=== PATIENT | male | born 1995 | race Caucasian/White ===

== ENCOUNTER 2016-08-05 11:39 | Observation (INO) | payer OTHER ==
--- NOTE | 2016-08-05 11:54 | EDPHY ---
HPI/HX/ROS/PE/MDM Narrative: CHIEF COMPLAINT: Left knee injury HPI: The patient is a 21 y/o male arriving via EMS as a Limited Trauma Alert complaining of pain to his left knee following a ski injury. He says he was traveling at low speeds when he fell, twisted his knee, heard a pop, and the binding came off. He had immediate severe pain and moderate swelling. He was splinted and extricated by skid strapper, who administered 100mcg Fentanyl with no improvement in his pain. The patient denies head, neck, back, or other extremity pain, loss of consciousness, weakness, or paresthesia. EMS reports he had intact CMS distal to the injury throughout transport, but did have difficulty controlling his pain. EMS administered additional 100mcg IV Fentanyl , IV Valium, and IV Morphine with some reduction in pain. He denies pertinent medical history. REVIEW OF SYSTEMS: Aside from elements discussed in the HPI, a comprehensive 10-point review of systems was reviewed and is negative. PMH: Denies SOCIAL HISTORY: Lives in [place]. PHYSICAL EXAM: General:Patient is alert, in mild distress. ENT:Eyes are normal to inspection. ENT inspection normal. Neck: Normal inspection. Full range of motion. Respiratory:No respiratory distress. Breath sounds normal bilaterally. Cardiovascular: Regular rate and rhythm. Strong peripheral pulses. Normal cap refill. Abdomen:The abdomen is nontender to palpation. There are no peritoneal signs. There are normal bowel sounds. Back: Normal to inspection. No tenderness to palpation. Skin: Normal color. No rash. Warm and dry. Extremities: Left leg: cap refill normal, 2+ dorsalis pedis pulse, deformity to knee and upper yi with swelling and severe tenderness, skin intact, ROM test deferred. Other extremities are normal in appearance with full range of motion. Neuro: Oriented x3. Normal motor function. Normal sensory function. ED Course: Study: Left knee x-ray series Indication: Pain, trauma, deformity Results: Knee x-ray was obtained. The results of the study are Comminuted displaced lateral tibial plateau fracture. The study was read by the radiologist, Dr. Solis. I viewed the images myself on the PACS system. No sign of knee dislocation. I have downgraded the patient as this was not an appropriate trauma activation. 1202: Consulted with Dr. Ortega, orthopedic surgeon. He will review films and assess patient. 1205: 100mcg IV Fentanyl administered for pain. CBC and CHEM labs ordered. Limited Trama downgraded. 1215: Consulted with Dr. Ortega again. He requests knee CT and immobilizer. Study: CT of the left knee Indication: pain, trauma, fracture, preop Results: CT scan of the knee was obtained. The results of the study are Comminuted displaced lateral tibial plateau fracture. Marked comminution of the tibial spines, likely involving the anterior cruciate ligament attachment. The dominant fracture fragment is displaced laterally. The study was read by the radiologist, Dr. Solis. I viewed the images myself on the PACS system. 1437: Consulted with Dr. Ortega again. He will review CT then determine if patient will be discharged home today. 1440: I discussed options for admission vs. home pain control with the patient. He has required multiple doses of Dilaudid while here to manage is pain for total of 1.5mg Dilaudid and 100mcg Fentanyl in addition to pain medication he received in the field. He is unsure if he will be able to manage his pain at home and wants to discuss with his family before deciding. 1455: Patient feels more comfortable being admitted to the hospital to manage his pain. - Data Points Laboratory Results: Laboratory Results 08/05/16 12:14 08/05/16 12:14 08/05/16 12:14 WBC 14.66 H 10^3/uL (3.80-9.50) RBC 4.89 10^6/uL (4.40-6.38) Hgb 14.5 g/dL (13.7-17.5) Hct 41.0 % (40.0-51.0) MCV 83.8 fL (81.5-99.8) MCH 29.7 pg (27.9-34.1) MCHC 35.4 g/dL (32.4-36.7) RDW 13.0 % (11.5-15.2) Plt Count 244 10^3/uL (150-400) MPV 9.5 fL (8.7-11.7) Neut % (Auto) 85.7 H % (39.3-74.2) Lymph % (Auto) 8.3 L % (15.0-45.0) Miner % (Auto) 5.0 % (4.5-13.0) Eos % (Auto) 0.2 L % (0.6-7.6) Baso % (Auto) 0.3 % (0.3-1.7) Nucleat RBC Rel Count 0.0 % (0.0-0.2) Absolute Neuts (auto) 12.56 H 10^3/uL (1.70-6.50) Absolute Lymphs (auto) 1.21 10^3/uL (1.00-3.00) Absolute Monos (auto) 0.73 10^3/uL (0.30-0.80) Absolute Eos (auto) 0.03 10^3/uL (0.03-0.40) Absolute Basos (auto) 0.05 10^3/uL (0.02-0.10) Absolute Nucleated RBC 0.00 10^3/uL (0-0.01) Immature Gran % 0.5 % (0.0-1.1) Immature Gran # 0.08 10^3/uL (0.00-0.10) Sodium 139 mEq/L (134-144) Potassium 4.2 mEq/L (3.5-5.2) Chloride 106 mEq/L (97-110) Carbon Dioxide 22 mEq/l (22-31) Anion Gap 11 mEq/L (8-16) BUN 12 mg/dL (7-23) Creatinine 0.7 mg/dL (0.7-1.3) Estimated GFR > 60 Glucose 109 H mg/dL (70-100) Calcium 9.2 mg/dL (8.5-10.4) Medications Given: Discontinued Medications Fentanyl (Sublimaze) 100 mcg IVP EDNOW ONE Stop: 08/05/16 12:06 Last Admin: 08/05/16 12:05 Dose: 100 mcg Hydromorphone HCl (Dilaudid) 0.5 mg IVP EDNOW ONE Stop: 08/05/16 12:22 Last Admin: 08/05/16 13:05 Dose: 0.5 mg General Initial Vital Signs: Initial Vital Signs Temperature (C) 36.8 C 08/05/16 11:49 Heart Rate 92 08/05/16 11:49 Respiratory Rate 16 08/05/16 11:49 Blood Pressure 158/106 H 08/05/16 11:49 O2 Sat (%) 97 08/05/16 11:49 O2 Delivery Mode Room Air Allergies/Adverse Reactions: clindamycin Allergy (Verified 08/05/16 11:47) Home Medications: Medication Instructions Recorded Herbals/Supplements -Info Only 1 ea PO DAILY 08/05/16 Loratadine [Claritin 10 mg] 10 mg PO DAILY 08/05/16 Triamcinolone 0.1% [Triamcinolone 1 nona TP DAILY PRN 08/05/16 0.1% Cream (*)] Departure - Departure Disposition: [facility] Inpatient Acute Clinical Impression: Tibial plateau fracture, left, displaced comminuted, Intractable pain Condition: Fair Instructions: Leg Fracture (ED) Additional Instructions: 1. Keep leg in immobilizer until follow up. Do not bear weight. Elevate when possible. Apply ice to sore areas. 2. Take 600mg ibuprofen every 6-8 for pain and inflammation. 3. Use pain medication as prescribed when needed for pain. 4. Follow up with Dr. Ortega's office tomorrow to schedule follow up. 5. Return to the ED for severe pain, dramatic increase in swelling, weakness or numbness in your foot, or other worsening of condition. Referrals: Patient,NotPresent [Unknown] - As per Instructions Dorian Ortega MD [Medical Doctor] - As per Instructions Report Scribed for: Nito Tang Report Scribed by: Jennifer Armstrong Date of Report: 08/05/16 Time of Report: 11:55 Physician Review and Approval Statement: Portions of this note were transcribed by an ED scribe. I personally performed the history, physical exam, and medical decision making; and confirm the accuracy of the information in the transcribed note.
[2016-08-05] MEDS ORDERED: fentaNYL 100 MCG/2 ML INJ ONE (12:00)
[2016-08-05] MEDS ORDERED: fentaNYL 100 MCG/2 ML INJ IVP ONE (12:05)
--- NOTE | 2016-08-05 12:06 | DX ---
Knee 4 or More Views Left HISTORY: Skiing injury. FINDINGS: Comminuted displaced fracture of the lateral tibial plateau is present. The dominant fractu re fragment is displaced laterally and inferiorly. Fracture fragments extend into the tibial spines. Associated lipohemarthrosis. Distal femur and patella appear intact. IMPRESSION: Comminuted displaced lateral tibial plateau fracture.
[2016-08-05] MEDS ORDERED: HYDROmorphONE/DILAUDID 1 MG/ML SYR IVP ONE ×2 (12:21→14:45)
[2016-08-05 12:24] LABS: % IMMATURE GRANULYOCYTES 0.5 % (0.0-1.1); ABSOLUTE IMMATURE GRANULOCYTES 0.08 10^3/uL (0.00-0.10); ADD DIFF? NO; ADD MORPH? NO; ADD SCAN? NO; ATYPICAL LYMPHOCYTE FLAG 0 (0-99); FRAGMENT RBC FLAG 0 (0-99); HEMOGLOBIN 14.5 g/dL (13.7-17.5); LEFT SHIFT FLG 0 (0-99); LIPEMIA HEMOLYSIS FLAG 90 (0-99); MEAN CELL HEMOGLOBIN 29.7 pg (27.9-34.1); MEAN CELL HEMOGLOBIN CONCENTR. 35.4 g/dL (32.4-36.7); MEAN CELL VOLUME 83.8 fL (81.5-99.8); MEAN PLATELET VOLUME 9.5 fL (8.7-11.7); PLATELET CLUMPS FLAG 10 (0-99); PLATELET COUNT 244 10^3/uL (150-400); RED BLOOD CELL COUNT 4.89 10^6/uL (4.40-6.38)
[2016-08-05 12:39] LABS: ANION GAP 11 mEq/L (8-16); CALCIUM 9.2 mg/dL (8.5-10.4); CARBON DIOXIDE 22 mEq/l (22-31); CHLORIDE 106 mEq/L (97-110); CREATININE 0.7 mg/dL (0.7-1.3); GLOMERULAR FILTRATION RATE > 60; GLUCOSE 109 mg/dL (70-100); POTASSIUM 4.2 mEq/L (3.5-5.2); SODIUM 139 mEq/L (134-144)
--- NOTE | 2016-08-05 13:39 | CT ---
CT of the left knee, without contrast. HISTORY: Skiing related injury. TECHNIQUE: Biometric axial CT images of the left knee are obtained and are reformatted in sagittal an d coronal planes. Dose reduction techniques were utilized. FINDINGS: An extremely comminuted displaced fracture of the tibial plateau is present. There is a lar ge dominant fracture fragment displaced laterally. Extreme comminution of the tibial spines is presen t. The anterior cruciate ligament likely inserts on one of these comminuted fragments. The posterior cruciate ligament appears intact on the sagittal reconstructions. Fracture extends across midline to involve the lateral aspect of the medial tibial plateau. IMPRESSION: 1. Comminuted displaced lateral tibial plateau fracture. Marked comminution of the tibial spines, lik jovita involving the anterior cruciate ligament attachment. The dominant fracture fragment is displaced laterally.
[2016-08-05] MEDS ORDERED: HYDROmorphONE/DILAUDID 1 MG/ML SYR IVP PRN (13:58)
[2016-08-05] MEDS ORDERED: HYDROmorphONE/DILAUDID 1 MG/ML SYR ONE (13:58)
[2016-08-05] MEDS ORDERED: LORazepam 2 MG/ML INJ IVP PRN (16:09)
[2016-08-05] MEDS ORDERED: ONDANSETRON 4 MG/2 ML VIAL IVP PRN (16:09)
[2016-08-05 16:27] LABS: INR 1.04 (0.83-1.16); PROTIME(PATIENT) 13.5 SEC (12.0-15.0)
[2016-08-05] MEDS ORDERED: DIAZEPAM 10 MG/2 ML SYR ONE (16:41)
--- NOTE | 2016-08-05 17:02 | GHP ---
[f rep st] PREOP HISTORY AND PHYSICAL DATE OF ADMISSION: 08/05/2016 CHIEF COMPLAINT: Left knee injury. HISTORY OF PRESENT ILLNESS: A 21-year-old RHD male CHRISTINE who complains of left knee injury while skiing at [employer]. 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 No binding release. He notes 2 pops as he felt his knee give way and he fell to the ground in severe pain. He was helmeted. No loss of consciousness or other injuries. He was unable to bear weight and required skilled nursing facilities professional [place] He denies any numbness or tingling at this time. His pain is well controlled in the range of 2 out of 10 currently after IV hydromorphone provided by ER; max pain was 8-9/10 right after the injury. He denies any other deficits or concerns at this time. He is accompanied by his mother and father. PAST MEDICAL HISTORY: Seasonal depression. PAST SURGICAL HISTORY: Tonsillectomy and adenoidectomy in November of 2015. Right foot skin lesion resection with Dermatology in December of 2015. Biopsy was negative for any cancer. ALLERGIES: Clindamycin causes lower extremity swelling, hives, and rash. MEDICATIONS: Escitalopram, trazodone, and clonazepam as needed for his depression on a seasonal basis, not taking any currently. SOCIAL HISTORY: He does not smoke or use any tobacco, recreational or illicit drugs. Approximately 6 alcoholic drinks per week. He is a senior at [employer]. 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 He otherwise is very active with biking, hiking, skiing, and all general outdoor activities. FAMILY HISTORY: Grandmother breast cancer. Grandfather stroke. Mother depression and hypothyroidism. REVIEW OF SYSTEMS: Ten-point review is negative for any other complaints, concerns, or history. PHYSICAL EXAM: VITAL SIGNS: Afebrile. Blood pressure 153/100, heart rate 96, respiratory rate 18, satting at 99% on 2 L. GENERAL: NAD, cooperative and pleasant. HEENT: NC/AT. EOMI, PERRLA. Ears and nares parent without discharge. Oropharynx clear. NECK: NTTP, FROM, supple. Negative Lhermitte's and Spurling's. No LAD. CARDIAC: Regular rate and rhythm. No murmurs, gallops, or rubs. PULMONARY: Clear to auscultation bilaterally. No wheezes, rhonchi, or rales. MUSCULOSKELETAL: Left knee is notable for significant medial hematoma, as well as edema. There is ecchymosis. Skin is intact throughout. No erythema or calor. 2+ effusion c/w acute hemarthrosis. There is TTP that is mild to moderate diffusely in the area of the knee. LLE compartments throughout are soft and compressible. There is no pain with active DF and PF of the ankle, as well as full flexion and extension of all digits. No pain with passive stretch. He is unable to perform SLR due to severe pain with attempted maneuver; no palpable patella dhara or extensor mechanism defects, however difficult to assess due to effusion and edema. Light touch sensation is intact distally throughout sural, saphenous, superficial peroneal, deep peroneal, and tibial nerve distributions. Motor intact throughout without any deficits. He is warm and well perfused with brisk capillary refill. 2+ palpable dorsalis pedis and posterior tibial pulses. Stability exam and ROM is deferred due to acute injury. SKIN: Please see dictation above. Skin is intact. There is significant edema directly about the knee, as well as ecchymosis. No erythema or calor. Skin is intact throughout. No other rashes or lesions noted. No tattoos. NEUROLOGIC: Nonfocal. No deficits noted. C5 to T1 and L2 through S1 grossly intact. DTRs are grade 1+ bilateral upper extremities with symmetry. DTRs in the lower extremities are deferred due to injury. PSYCH: Alert and oriented x3. Appropriate mood and affect. RADIOGRAPHS: Plain films and CT scan are notable for a Schatzker II split depression lateral tibial plateau fracture with extension into the intracondylar region and tibial eminences. There is significant comminution throughout the lateral and intercondylar platea. The articular segments depressed inferiorly by a maximum of approximately 2 cm and approximately 1-1.5 cm of diastasis at the lateral plateau articular surface. Otherwise, tibiofemoral alignment is appropriate throughout without any significant subluxation. IMPRESSION: Left tibial plateau fracture, Schatzker II with severe comminution and displacement. This is a closed injury and without any signs of compartment syndrome at this time. PLAN: The patient's diagnoses and treatment options have been outlined for him and his family today. At this point, given his significant pain requirement, including multiple Dilaudid IV doses during his ER stay, as well as his significant swelling, we will admit the patient for observation and compartment checks, neurovascular checks, analgesia and close observation. NPO now as precautionary measure in case he may need emergent surgery such as fasciotomy. No chemoprophylaxis at this time, but will likely begin Xarelto 10mg daily tomorrow. He will work with PT/OT this afternoon to evening or tomorrow to assure that he would be safe for discharge home. He understands we would proceed with ORIF surgery and all other associated procedures once his swelling has subsided. Strict NWB LLE. Ice with elevation above his heart. COLEMAN hose and SCDs on the right lower extremity, just SCDs on the left. Education provided to patient and family regarding signs and sx of compartment syndrome. All of his questions have been answered today. They are very happy with the care he has received. We will follow the patient closely overnight as an inpatient and achieve formal rounds again tomorrow before discharging home. /[id number]/MODL MTDD
[2016-08-05 17:16] VITALS: RESP 16
[2016-08-05] MEDS: D5W 1/2 NS 1,000 ML IV SCH ×2 (17:26→23:19)
[2016-08-05] MEDS: HYDROmorphONE/DILAUDID 1 MG/ML SYR IVP PRN ×3 (17:27→21:39)
[2016-08-05] MEDS: OXYCODONE/APAP 5/325 TAB PO PRN ×2 (18:38→23:19)
[2016-08-05] MEDS: DIAZEPAM 10 MG/2 ML SYR IVP PRN ×2 (18:38→23:19)
[2016-08-05 18:57] LABS: APTT 22.9 SEC (23.0-38.0)
[2016-08-06] MEDS: HYDROmorphONE/DILAUDID 1 MG/ML SYR IVP PRN ×4 (00:33→09:26)
[2016-08-06] MEDS: OXYCODONE/APAP 5/325 TAB PO PRN ×2 (04:02→08:04)
[2016-08-06] MEDS ORDERED: LIDO/EPI 1% **Not for Epidural 20 ML MDV IV ONE (08:30)
--- NOTE | 2016-08-06 08:36 | SOAPPROG ---
SOAP Progress Note Assessment/Plan: Assessment: Pain well controlled in 3-4/10 range, no sign of compartment syndrome or NV deficit in this 21M w/ L tibial plateau fx. Plan: NWB, ice/elevation, knee immobilizer LLE. Asp site dressed, reinforce prn. OOB w/ PT/OT today, crutch training, precautions. Continue NPO x meds, ice/sips OK. If exam stable, will provide reg diet ~noon. May be d/c'd home after pain controlled with POs only and clears PT/OT. Will need ORIF once swelling will allow. Will recheck knee in ~1 week to assess for timing of surgery. Start Xarelto prophylaxis today, continue with TEDs/SCDs as ordered. 08/06/16 08:51 08/06/16 10:21 Subjective: Pain well controlled 3-4/10, denies any numbness/tingling or other new c/o's with LLE. Was able to sleep on/off o/n. No nursing concerns. Objective: Vital Signs Temp Pulse Resp BP Pulse Ox 36.7 C 77 16 146/89 H 99 08/06/16 07:43 08/06/16 07:43 08/06/16 07:43 08/06/16 07:43 08/06/16 07:43 08/05/16 08/06/16 08/07/16 05:59 05:59 05:59 Intake Total 2200 Output Total 650 Balance 1550 PT 13.5 SEC (12.0-15.0) 08/05/16 12:25 INR 1.04 (0.83-1.16) 08/05/16 12:25 L knee with tense effusion/hemarthrosis. LLE compartments soft, no sign of compartment syndrome. DNVI BLE's. BLE's neg Kinza's, RLE no calf TTP/edema w/ TEDs/SCDs in place. Procedure: After verbal informed consent, sterile technique used. 1% lido w/ epi used for local anesthesia. L knee aspiration performed with 60cc bloody effusion obtained. Knee joint decompressed after procedure and patient describes knee feeling better with decreased pressure. ICD10 Worksheet Patient Problems: Problems Problem Status Diagnosed Intractable pain Acute Tibial plateau fracture, left Acute
[2016-08-06] MEDS ORDERED: RIVAROXABAN 10 MG TAB PO SCH (09:00)
[2016-08-06 11:19] VITALS: BP 160/92; PULSE 96; TEMP 98.3; O2SAT 91
[2016-08-06] MEDS ORDERED: ALPRAZolam 0.25 MG TAB PO PRN (12:54)
[2016-08-06] MEDS ORDERED: METHOCARBAMOL 750 MG TAB PO PRN (12:56)
[2016-08-06] MEDS ORDERED: HYDROmorphONE/DILAUDID 1 MG/ML SYR IVP PRN (12:59)
[2016-08-06] MEDS ORDERED: OXYCODONE/APAP 5/325 TAB PO PRN (14:08)
[2016-08-06] MEDS ORDERED: oxyCODONE IR 5 MG TAB PO PRN (14:08)
--- NOTE | 2016-08-06 16:56 | PDDCSUM ---
Discharge Summary Discharge Summary: 21y/o M BIBA for L knee injury while skiing. Pt was diagnosed with a L tibial plateau fracture, and admitted for significant pain and observation. Pt was started on Xarelto 10mg daily, and SCDs/TEDs in place on the RLE and SCD on the LLE. Long leg brace on the LLE, in addition to elevation and ice. Pt had difficulty urinating; therefore, a straight catheterization was performed. Pt was evaluated by PT/OT. Pt was weaned off of IV analgesics, and tolerated PO well upon discharge. Aspiration of the L knee hemarthrosis provided relief. No signs of compartment syndrome. Pt understands he will follow-up as an outpatient and undergo ORIF. Hospital course was otherwise uneventful.
== END 2016-08-06 16:44 | disposition home or self-care (01) ==
LOC: EDUNIT# → INTOOBSV 16:25 → F3N 17:11
PROVIDERS: ADMIT Orthopaedic Surgery; ATTEND Orthopaedic Surgery
PROC: 0T9B7ZZ Drainage of Bladder, Via Natural or Artificial Opening (ICD-10-PCS; principal; 2016-08-05)
PROC: 0S9D3ZZ Drainage of Left Knee Joint, Percutaneous Approach (ICD-10-PCS; principal; 2016-08-05)
DX: S82.142A Displaced bicondylar fracture of left tibia, initial encounter for closed fracture (principal); Y93.23 Activity, snow (alpine) (downhill) skiing, snowboarding, sledding, tobogganing and snow tubing; Y92.838 Other recreation area as the place of occurrence of the external cause; V00.321A Fall from snow-skis, initial encounter
CPT/HCPCS: 20610; 51701; 73564; 73700; 96374; 96375; 96376; 97116; 97161; 97530; 99285; G0378; J1170; J3010

== ENCOUNTER 2016-08-15 10:54 | Observation (INO) | payer OTHER ==
[~2016-08-15 10:54] MED LIST: CHLORHEXIDINE GLUC HIBICLENS 118 ML BTL TP ONE; ceFAZolin 2 GM/DEXTROSE 100 ML IV ONE
[2016-08-15] MEDS ORDERED: LIDOCAINE 1% 5 ML SDV ONE (11:31)
[2016-08-15] MEDS ORDERED: CEFAZOLIN 2 GM/DEXTROSE/100 ML BAG IV ONE (11:32)
[2016-08-15] MEDS ORDERED: fentaNYL 250 MCG/5 ML INJ ONE (13:08)
[2016-08-15] MEDS ORDERED: PROPOFOL/EMULSION 500 MG/50 ML BOTTLE IV ONE ×4 (13:09→15:51)
[2016-08-15] MEDS ORDERED: BUPIVACAINE/EPI 0.5% 30 ML SDV ONE (13:36)
[2016-08-15] MEDS ORDERED: POLYMYXIN B SULFATE 500,000 UNIT/10 ML SYR IRR ONE (13:37)
[2016-08-15] MEDS ORDERED: BUPIVACAINE/EPI 0.25% 30 ML SDV ONE (13:37)
[2016-08-15] MEDS ORDERED: morphINE PF 5 MG/10 ML INJ ONE (13:37)
[2016-08-15] MEDS ORDERED: BACITRACIN 50,000 UNITS/10 ML SYR IRR ONE (13:38)
[2016-08-15] MEDS ORDERED: MIDAZOLAM 2 MG/2 ML VIAL ONE (13:46)
[2016-08-15] MEDS ORDERED: REMIFENTANIL HCL 1 MG VIAL ONE ×2 (14:13→15:54)
[2016-08-15] MEDS ORDERED: HYDROmorphONE/DILAUDID 2 MG/ML SYR ONE ×2 (15:08→18:06)
[2016-08-15] MEDS ORDERED: LABETALOL HCL 5 MG/ML 20 ML MDV ONE (15:11)
--- NOTE | 2016-08-15 17:04 | DX ---
Intraoperative fluoroscopy History: Tibial ORIF Comparison: CT August 05 Dose = 5.24 mGy Findings: 4 spot films demonstrate lateral ORIF of the proximal tibia with the tibial plateau appeari ng to be in anatomic alignment. The knee joint is also in anatomic alignment. Impression: Anatomic intraoperative alignment of the tibial plateau and knee joint.
[2016-08-15] MEDS ORDERED: ONDANSETRON 4 MG/2 ML VIAL IVP PRN ×2 (18:33)
[2016-08-15] MEDS ORDERED: diphenhydrAMINE 25 MG CAP PO PRN (18:33)
[2016-08-15] MEDS ORDERED: PROMETHAZINE HCL 25 MG/ML INJ IVP PRN (18:33)
[2016-08-15] MEDS ORDERED: TEMAZEPAM 15 MG CAP PO PRN (18:33)
[2016-08-15] MEDS ORDERED: DIPHENOXYLATE/ATROPINE LOMOTIL 1 TAB PO PRN (18:33)
[2016-08-15] MEDS ORDERED: METOCLOPRAMIDE 10 MG/2 ML VIAL IVP PRN (18:33)
[2016-08-15] MEDS ORDERED: ONDANSETRON DISINTEGRATING 4 MG TAB PO PRN ×2 (18:33)
[2016-08-15] MEDS ORDERED: PROMETHAZINE HCL 25 MG SUPPR PR PRN (18:33)
[2016-08-15] MEDS ORDERED: fentaNYL 100 MCG/2 ML INJ ONE ×2 (18:35→19:07)
[2016-08-15] MEDS ORDERED: NALOXONE HCL 0.4 MG/ML INJ IVP PRN (18:49)
[2016-08-15] MEDS ORDERED: ONDANSETRON 4 MG/2 ML VIAL ONE (18:58)
[2016-08-15] MEDS ORDERED: PROMETHAZINE HCL 25 MG/ML INJ ONE (18:59)
[2016-08-15] MEDS ORDERED: HYDROmorphONE/DILAUDID 1 MG/ML SYR ONE (19:07)
--- NOTE | 2016-08-15 19:11 | POSTOPPROG ---
Post Op Note Date of Operation: 08/15/16 Surgeon: Dorian Ortega Battery Assembler Dry Cell: MARCELO Gordon Anesthesiologist: Nenita Barragan Anesthesia: GET(General Endotracheal) Pre-op Diagnosis: L tibial plateau fracture, closed; MC LMT; MCL & ACL distal avulsions Post-op Diagnosis: same Procedure: ORIF L tibial plateau, open repair of LMT and MCL tear; scope- assisted ACLr Inf/Abcess present in the surg proc area at time of surgery?: No EBL: 50-100 (50cc) Complications: None
--- NOTE | 2016-08-15 20:31 | DX ---
Left Tibia/Fibula (Lower Leg) Clinical Indications: Postoperative follow up; comparison preoperative knee x-ray August 05, 2016. Findings: Postoperative changes of ORIF are seen for treatment of the prominently comminuted and disp laced left tibial plateau fracture. A plate and multiple screws hold the fracture in near anatomic al ignment. An external brace is positioned. No immediate postoperative complication is seen. Impression: Near-anatomic alignment following ORIF.
[2016-08-15] MEDS: oxyCODONE IR 5 MG TAB PO PRN (21:06)
[2016-08-15] MEDS: FAMOTIDINE 20 MG TAB PO SCH (21:07)
[2016-08-15] MEDS: NS 1,000 ML IV SCH (21:07)
[2016-08-15] MEDS ORDERED: ceFAZolin 2 GM/DEXTROSE 100 ML IV SCH (22:00)
[2016-08-15] MEDS: OXYCODONE/APAP 5/325 TAB PO PRN (22:58)
[2016-08-15] MEDS: ACETAMINOPHEN 325 MG TAB PO SCH (23:46)
[2016-08-16] MEDS: CYCLOBENZAPRINE 10 MG TAB PO PRN (00:18)
[2016-08-16] MEDS: oxyCODONE IR 5 MG TAB PO PRN ×6 (00:18→20:56)
[2016-08-16] MEDS: ceFAZolin 2 GM in D5W 100 ML IV SCH ×2 (00:34→08:50)
[2016-08-16] MEDS: HYDROmorphONE/DILAUDID 6 MG/30 ML PCA IV PRN ×2 (01:29→12:14)
--- NOTE | 2016-08-16 04:31 | GOP ---
[f rep st] OPERATIVE REPORT DATE OF OPERATION: 08/15/2016 SURGEON: Dorian Ortega MD TRACK MECHANIC: Humera Alfaro PA-C. ANESTHESIA: General. ANESTHESIOLOGIST: Regan Barragan MD. PREOPERATIVE DIAGNOSIS: 1. Closed left tibial plateau fracture involving both condyles. 2. Left knee lateral meniscus tear and meniscocapsular rupture 3. Left knee distal (MCL) medial collateral ligament avulsion. 4. Left knee anterior cruciate ligament bony avulsion and tibial eminence fracture. POSTOPERATIVE DIAGNOSIS: 1. Closed left tibial plateau fracture involving both condyles. 2. Left knee lateral meniscus tear and meniscocapsular rupture 3. Left knee distal (MCL) medial collateral ligament avulsion. 4. Left knee anterior cruciate ligament bony avulsion and tibial eminence fracture. PROCEDURE PERFORMED: 1. Open reduction, internal fixation of left tibial plateau bicondylar fracture. 2. Open left medial collateral ligament repair. 3. Open left knee lateral meniscus repair and partial meniscectomy. 4. Left knee arthroscopic assisted tibial eminence fracture reduction and distal anterior cruciate ligament (ACL) repair. FINDINGS: Severely displaced and high-energy appearing left lateral tibial plateau fracture, with 2 cm of depression of the articular surface, and widening of the lateral condyle by approximately 1.5 cm. There was extension of the fracture with severe comminution into the intercondylar eminences, with complete disruption of the distal ACL insertion site, as well as further extension out into the medial tibial plateau articular surface. Medial meniscus was intact. There was a complete rupture and partial radial tear of the lateral meniscus at posterior body. The meniscocapsular junction of the lateral meniscus was completely ruptured and the meniscus was displaced laterally with the tibial plateau lateral segment. There were multiple free- floating chondral pieces within the lateral compartment. There was some fracture extension down into the tibial tubercle; however, the majority extensor mechanism was intact. The MCL tear was notable for a complete distal avulsion and displacement superficially over the hamstrings tendons, therefore creating a"Stener lesion" of the knee. Once the internal fixation was completed as well as ligamentous repair, the knee was stable at 0 degrees to varus valgus stress, and had only grade 1 laxity at 30 degrees of flexion. Bone quality was excellent. After reduction of the fracture site, there was significant cartilage loss in the posterior aspect of the lateral tibial plateau articular surface. SPECIMENS: None. ESTIMATED BLOOD LOSS: 50 cc. 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 I was the on-call orthopedic surgeon when he was brought in by ambulance to [facility] Emergency Department. The patient was found to have the above listed tibial plateau fracture. He was immobilized, treated with COLEMAN hose , admitted for significant swelling and compartment checks, as well as pain control, and then discharged home for time to allow the swelling to subside, after compartment syndrome was ruled out. The patient utilized significant p.o. narcotics while he was at home. He remained nonweightbearing. Ice and elevation in his knee immobilizer. He presented to me yesterday for preop evaluation and was found have severe swelling as well as findings concerning for VTE, and therefore was sent to [facility] for stat ultrasound. This was a negative study. The patient was preoperatively evaluated with an outpatient MRI which confirmed the above listed diagnoses, i.e., MCL and ACL complete avulsions as well as severe lateral meniscus tear and meniscal capsular rupture. In addition, the MRI was confirmatory for medial condylar extension of the fracture as well as severe comminution within the intercondylar eminence, and maximum articular step-off medially of 4-5 mm and approximately 2 cm laterally. As a result, the patient was prepared for surgery. The risks, benefits, and alternatives were discussed with him and he provided a signed witnessed informed consent, which was placed in the patient's chart. All of his questions were answered prior to surgery including all of his family's questions. DESCRIPTION OF PROCEDURE: The patient was identified in the preop holding area. His left knee was signed as the operative site. The patient was confirmed to be in right lower extremity COLEMAN hose and SCDs. He was treated with 2 g IV prophylactic cefazolin per protocol. He was taken back to the operating room, placed supine on the OR table. General anesthesia was obtained. A Mcfarland was placed. The patient was then transferred to the flat Cade table. Both upper extremities were placed on well-padded arm boards. Right lower extremity was placed in a well-padded OR table. Left lower extremity was wrapped proximally with cast padding, a nonsterile tourniquet, and then prepped and draped in the usual sterile manner. Large C-arm was utilized and prepped for sterile draping and used during the surgery. C-arm was essential for assurance of reduction and hardware placement. Esmarch exsanguination was utilized to inflate the tourniquet to 250 mmHg. A standard lateral hockey-stick type lazy-S incision was placed along the anterior tibial crest, just superior to Gerdy's tubercle and then posterior along the joint line, and extended up proximally and parallel with the IT band. A full-thickness dermal incision was made with a #10 blade. Careful dissection was taken down to subcutaneous fat. Bovie cautery device was used to coagulate all small bleeders. The IT band was identified proximally and divided in parallel with its fibers. The anterior compartment had significant rupture of the tissues as well as the lateral aspect of the patellar tendon expansion. There was additional IT band tissue rupture distally at the level of Gerdy's tubercle. The fracture hematoma was identified clearly in the distal aspect of the wound at the level of the fracture site, and with abundant hemorrhage and currant jelly-appearing hematoma within the anterior compartment. Using a laminar linux support engineer, the distal aspect of the fracture was carefully opened and significant hematoma was removed with a rongeur, curette, irrigation, and suction. Dissection was then taken proximally and a sub meniscal arthrotomy was performed just inferior to the lateral meniscus, after opening the IT band in a curvilinear manner, across the fibers obliquely, and then parallel to the fibers proximally. Abundant hemarthrosis was suction irrigated. Multiple #2 Ethibond sutures were placed in the lateral aspect of the lateral meniscus, in order to retract the meniscus superiorly, as well as eventually repair the meniscus. Bone tamps were utilized to reduce the depressed articular bone fragments superiorly up toward the appropriate anatomic articular level. Unfortunately, there were multiple sub cm diameter chondral segments that were completely devoid of bone or with only a sliver of bone, that were free-floating within the joint. These were removed from the wound. Once an appropriate reduction was achieved at the level of the articular surface, confirmed with direct visualization as well as orthogonal C- arm x-rays, a reduction was achieved distally with anatomic keying in of the distal extent of the lateral condyle fracture segment. This was then compressed with a large clamp and provisionally fixated with K-wires. Images were taken to assure appropriate reduction throughout. An 8 hole lateral tibial plateau locking plate was identified and selected as the appropriate plate for this patient's injury. This was then placed over the lateral aspect of the tibia and matched with the patient's metaphyseal flare. This was provisionally fixated with additional K-wires. Once an appropriate reduction was confirmed at the level of the articular surface as well as hardware was confirmed in the appropriate position, the plate was lagged down to bone at the level of the distal extent of the fracture, just distal to the fracture with a buttressing bicortical screw. Next, the plate was carefully utilized to compress the tibial plateau fracture across the fracture site, with a terminally threaded nonlocking screw. Three additional Rafter screws were placed across the fracture site in a locking manner, just inferior to the articular surface. Excellent rafter effect was achieved. The plate was then further fixated distally with 2 additional locking screws. Then 2 additional cancellous locking screws more proximally over the metaphyseal segment. A very nice reduction was achieved at the proximal tibial plateau on all views. Once the ORIF portion of the case was completed, the ACL distal avulsion was addressed. Working through the sub meniscal arthrotomy as well as using the arthroscope through a medial portal created through the skin and lateral portal created through the retinaculum, using the hockey stick incision, knee arthroscopy was performed. The sub meniscal arthrotomy was left open in order to allow egress of fluid and avoid any extravasation and/or pressurized fluid down into the lower leg compartments. The ACL distal avulsion was found and identified and carefully elevated, and hematoma was debrided with fluid and shaver. Additional synovitis and torn tissues were debrided away from the distal ACL avulsion, and using a #2 FiberWire, the FiberWire was passed through the ACL distal insertion at the level of bone, and then shuttled out through the lateral sub meniscal arthrotomy in the anteromedial portal. A medial incision was then made over the distal insertion of the MCL, with a skin incision measuring approximately 5 cm. Full-thickness dermal incision was made with a #10 blade, and careful dissection was taken down through the subcutaneous fat. Small branches of saphenous nerve were identified along the proximal and distal extents of the dissection. There was abundant hematoma and tissue damage within this portion of the knee. The MCL was found sitting superficial to the semi tendinosis and gracilis hamstring tendons, as well as the sartorial membrane overlying the 2 hamstrings tendons. Some of the sartorius membrane and/or fascial expansion was ruptured. Once this was appropriately exposed, the ACL guide was utilized in order to place two 2 mm drill holes up to the medial and lateral margins of the distal ACL bony avulsion , at the tibial eminence. Using a Machado suture passer and arthroscopic grasper, the 2 ends of the FiberWire suture were then brought out through separate tunnels and then tied over a bone bridge. The arthroscopic probe was utilized in order to reduce the distal avulsion fracture segment into its anatomic site, and then the ACL was repaired with good tension using the #2 FiberWire and direct knot-tying by me. At least a 1 cm bone bridge was maintained over the anteromedial tibial cortex. Once the ACL was repaired, the lateral meniscus was then addressed. Working through the lateral sub meniscal arthrotomy, the prior #2 Ethibond sutures were used to repair the meniscus down to the lateral plateau, and through the suture holes of the tibial plate. In addition, sutures were passed through the IT band and the lateral aspect of the lateral meniscus in order to further repair the meniscus. An additional #2 Ethibond was used to place a uvohea-br-hoqlo suture through the radial portion of the tear of the lateral meniscus, at the junction of the posterior horn and body. A mixture of both #2 FiberWire and #2 Ethibond sutures were used to perform a lateral meniscus repair , via direct open approach. Once this was completed, the IT band at the lateral side incision was closed with multiple #2 Ethibond and FiberWire sutures. The deep fat space was reapproximated and closed with multiple 0 Vicryl sutures. 2-0 Vicryl sutures were used for deep dermal layer. Finally marko were used to close the lateral wound. Notably, a single incision measuring approximately 2 cm distally was utilized in order to place distal locking screws in a MIPO technique. This incision was made with gentle spreading using a hemostat in order to access those screw holes in the plate, and this wound was closed after copious irrigation with sterile saline. It was closed with 2-0 Vicryl sutures in the deep dermal layer, and then marko. The MCL repair was then performed through the medial incision. Retractors were placed. Irrigation was utilized. Please note, the tourniquet was dropped prior to closing the lateral wound. The remainder of the case was performed without tourniquet. Hemostasis was appropriate throughout the remainder of the case. The MCL was repaired to the standard anatomic insertion point, deep to the hamstrings, tendons, and pes using 2 double loaded 2.8 mm ConMed Y-Knot All- suture suture anchors. These were placed longitudinally 1 above the other, approximately 1 cm apart. In each case, a traction stitch with post and then a horizontal mattress stitch was utilized in order to repair the MCL down, directly to bone and deep to the hamstrings tendons and pes anserinus. A total of 4 knots and/or suture pairs were used to repair the MCL. Excellent repair was achieved. The retractors were utilized for this repair in order to elevate the hamstrings and pes, and then assure that these were placed back or drawn up back over the MCL repair. Once the MCL was repaired, the wound was copiously irrigated with sterile saline. The wound was closed with deep fat 0 Vicryl sutures x2. Multiple deep dermal 2-0 Vicryl sutures were used to reapproximate the skin. Marko were then used to close the skin finally. The anteromedial portal was closed with interrupted 3-0 nylon suture. The leg was then copiously cleaned with a wet and dry sponge. Please note, all wounds were copiously irrigated with sterile saline prior to closure. In addition, approximately 5 L of arthroscopic fluid was used to flow through the knee and out through all the wounds, during the arthroscopic portion of the case. Sterile postop surgical dressings were applied. The knee was assessed after all surgery and found to be stable to varus and valgus stress, at 0 and 30 degrees, with only a maximum of approximately grade 1, valgus laxity at 30 degrees. No laxity whatsoever at 0 degrees. There was no varus laxity at 0 or 30 degrees. Posterior drawer was trace, with a relatively firm endpoint. Germaine was trace to grade 1, with a softer endpoint. COLEMAN hose and SCDs were applied. A hinged knee brace was applied, locked in extension at 0 degrees. A Cryo/Cuff was utilized. The Anesthesia Service took over to wake the patient up. TOURNIQUET TIME: 2 hours at 250 mmHg. DRAINS: None. IMPLANTS: Tibial plateau ORIF was performed with an 8 hole lateral tibial plateau locking plate from [employer]. A total of 4 proximal Rafter screws were utilized and then 3 distal shaft screws and 2 additional metaphyseal locking screws. A combination of locking and nonlocking screws were used throughout from the small fragment set. All were 3 5 diameter screws. There were additional ConMed Y-Knot suture anchors x2, both double loaded at 2.8 mm. Then multiple sutures were used. COMPLICATIONS: None. DISPOSITION: Patient was extubated and transferred to the PACU in stable condition. /[id number]/MODL MTDD
[2016-08-16] MEDS: ACETAMINOPHEN 325 MG TAB PO SCH ×3 (05:11→18:18)
[2016-08-16] MEDS: FAMOTIDINE 20 MG TAB PO SCH ×2 (08:50→20:56)
[2016-08-16] MEDS: DIAZEPAM 5 MG TAB PO PRN ×3 (08:50→20:56)
[2016-08-16] MEDS ORDERED: POLYETHYLENE GLYCOL 3350 17 GM PKT PO PRN (10:45)
[2016-08-16] MEDS ORDERED: LACTULOSE 20 GM/30 ML UDCUP PO PRN (10:45)
[2016-08-16] MEDS ORDERED: MAGNESIUM HYDROXIDE 30 ML UDCUP PO PRN (10:45)
[2016-08-16] MEDS ORDERED: BISACODYL 10 MG SUPP PR PRN (10:45)
--- NOTE | 2016-08-16 15:41 | SOAPPROG ---
SOAP Progress Note Assessment/Plan: Assessment/Plan: 21y/o M s/p ORIF L tibial plateau fracture, MCL repair, ACL repair, and lateral meniscus repair and partial meniscectomy - NWB LLE - Continue ice and elevation - Continue pain management, transition to PO meds when able - PT/OT today - Finish antibiotics as ordered - Continue SCDs and TEDs for mechanical DVT prophylaxis - Start Xarelto 10mg tonight for chemoprophylaxis - Valium ordered for muscle spasms 08/16/16 15:41 08/16/16 15:44 Subjective: Pt states his pain is an, 8/10, which is manageable, but he is having muscle spasms in the LLE. Pt denies fever, chills, chest pain, SOB, abdominal pain, nausea, vomiting, numbness, tingling, and calf pain. Objective: VSS, afebrile, lying in bed Vital Signs Temp Pulse Resp BP Pulse Ox 37.4 C 120 H 16 136/73 H 95 08/16/16 12:02 08/16/16 14:46 08/16/16 14:46 08/16/16 14:46 08/16/16 14:46 08/15/16 08/16/16 08/17/16 05:59 05:59 05:59 Intake Total 2755 Output Total 5 Balance 730 Physical Exam - Physical Exam General Appearance: alert, mild distress Peripheral Pulses: 2+: dorsalis-pedis (R), dorsalis-pedis (L) Skin: normal color, warm/dry Extremities: normal capillary refill, other (Dressing and ACL brace intact LLE with polar care), No pedal edema, No calf tenderness, No swelling, No Kinza's sign ICD10 Worksheet Patient Problems: Problems Problem Status Diagnosed Intractable pain Acute Tibial plateau fracture, left Acute
--- NOTE | 2016-08-16 16:25 | SOAPPROG ---
SOAP Progress Note Assessment/Plan: Assessment: POD 1 s/p severely comminuted L tibial plateau fracture ORIF, LMR, distal ACL repair and tibial eminence reduction/fixation, MCL repair. No sign of compartment syndrome since surgery. Overall doing well, though current narc usage is impacting his ability to urinate/defecate. Plan: Complete all IV proph abx, start Xarelto this PM as ordered. Cont TEDs/ SCDs, ICS, PT/OT for mob OOB with crutches/FWW, strict NWB and brace on at all times (locked at 0 deg's) when up and ambulating. Start CPM tonight 0-30 deg's , advance by 5-10 deg's daily as tolerated to max goal of 0-90 degs. Pt will need this CPM for 6 weeks post-op. RICE. 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 Dispo likely to home tomorrow. F/u with me in clinic for 1st out-pt visit 10- 14 days post-op. 08/16/16 16:25 Subjective: Pain well controlled, no N/T either lower extremity. Difficulty urinating again , like prior in-pt stay. Again using alot of narcotics. Objective: Vital Signs Temp Pulse Resp BP Pulse Ox 37.4 C 120 H 16 136/73 H 95 08/16/16 12:02 08/16/16 14:46 08/16/16 14:46 08/16/16 14:46 08/16/16 14:46 08/15/16 08/16/16 08/17/16 05:59 05:59 05:59 Intake Total 2755 Output Total 2024 Balance [address], dsgs c/d/i. BLE's in TEDs/SCDs. Distally, able to DF/PF ankle and toes. LT sens intact throughout without deficit. Palp DP, WWP w/ brisk CR. Neg Kinza's and no sig edema, mild calf TTP. Minor heel cord tightness, educated pt and family again on heel-cord stretching passively as well as ankle/ foot A/AA/PROM. ICD10 Worksheet Patient Problems: Problems Problem Status Diagnosed Intractable pain Acute Tibial plateau fracture, left Acute
[2016-08-16] MEDS: RIVAROXABAN 10 MG TAB PO SCH (18:18)
[2016-08-16] MEDS: NS 1,000 ML IV SCH (18:19)
[2016-08-16] MEDS: OXYCODONE/APAP 5/325 TAB PO PRN (19:37)
[2016-08-16] MEDS: HYDROmorphONE/DILAUDID 1 MG/ML SYR IVP PRN (19:37)
[2016-08-16] MEDS ORDERED: SENNOSIDES/DOCUSATE SODIUM TAB PO SCH (21:00)
[2016-08-17] MEDS: ACETAMINOPHEN 325 MG TAB PO SCH ×5 (00:01→23:21)
[2016-08-17] MEDS: OXYCODONE/APAP 5/325 TAB PO PRN ×4 (00:02→15:33)
[2016-08-17] MEDS: oxyCODONE IR 5 MG TAB PO PRN ×4 (03:05→23:22)
[2016-08-17] MEDS: CYCLOBENZAPRINE 10 MG TAB PO PRN ×3 (03:08→19:39)
[2016-08-17] MEDS: FAMOTIDINE 20 MG TAB PO SCH ×2 (07:48→19:40)
[2016-08-17] MEDS: RIVAROXABAN 10 MG TAB PO SCH (07:48)
--- NOTE | 2016-08-17 08:32 | SOAPPROG ---
SOAP Progress Note Assessment/Plan: Assessment/Plan: 21y/o M s/p ORIF L tibial plateau fracture, MCL repair, ACL repair, and lateral meniscus repair and partial meniscectomy POD#2 - NWB LLE - Continue ice and elevation - Continue pain management, try PO dilaudid 2mg and Percocet 7.5-325 since this will be his home regimen - PT/OT today - Continue SCDs and TEDs for mechanical DVT prophylaxis - Continue Xarelto 10mg daily - Continue CPM as ordered - Dressing changed today - Possible discharge today 08/16/16 15:41 08/16/16 15:44 08/17/16 08:28 Subjective: Pt states his pain is being well-controlled. He was able to get OOB yesterday with PT. Pt was able to void last night. Pt denies fever, chills, chest pain, SOB, abdominal pain, N/V, numbness, tingling, and calf pain. Objective: SCDs/TEDs in place bilaterally. Cryocuff and brace on the LLE. CPM in place. Vital Signs Temp Pulse Resp BP Pulse Ox 36.9 C 108 H 16 142/75 H 99 08/17/16 07:27 08/17/16 07:27 08/17/16 07:27 08/17/16 07:27 08/17/16 07:27 08/16/16 08/17/16 08/18/16 05:59 05:59 05:59 Intake Total 2755 1500 500 Output Total 2025 2200 300 Balance 730 -700 200 Physical Exam - Physical Exam General Appearance: alert, no apparent distress Peripheral Pulses: 2+: dorsalis-pedis (R), dorsalis-pedis (L) Skin: normal color, warm/dry, other (Incision site c/d/i) Extremities: normal inspection, normal capillary refill, other, No pedal edema, No calf tenderness, No swelling, No Kinza's sign Neuro/Psych: no motor/sensory deficits, alert, normal mood/affect ICD10 Worksheet Patient Problems: Problems Problem Status Diagnosed Intractable pain Acute Tibial plateau fracture, left Acute
[2016-08-17] MEDS: HYDROmorphONE/DILAUDID 2 MG TAB PO PRN ×3 (11:20→22:18)
--- NOTE | 2016-08-17 12:22 | SOAPPROG ---
SOAP Progress Note Assessment/Plan: Assessment: POD 2 s/p severely comminuted L tibial plateau fracture ORIF, LMR, distal ACL repair and tibial eminence reduction/fixation, MCL repair. No sign of compartment syndrome since surgery. Overall doing well, analgesics now appropriate for d/c home. Plan: Cont Xarelto as ordered - 2 wks total post-op. Cont TEDs/SCDs, ICS, PT/OT cleared pt for safe d/c home and out-pt PT. Strict NWB and brace on at all times (locked at 0 deg's) when up and ambulating. May remove brace for protected PT and CPM 0-30 deg's, advance by 5-10 deg's daily as tolerated to max goal of 0-90 degs. Pt approved for CPM x 4 weeks post-op. RICE. PO percocet with hydropmorphone BTP dose. D/c home this PM with family. F/u with me in clinic for 1st out-pt visit 10-14 days post-op. 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 Able to urinate with good UOP o/n, o/w no LESLIE. Objective: Vital Signs Temp Pulse Resp BP Pulse Ox 36.9 C 108 H 16 142/75 H 99 08/17/16 07:27 08/17/16 07:27 08/17/16 07:27 08/17/16 07:27 08/17/16 07:27 08/16/16 08/17/16 08/18/16 05:59 05:59 05:59 Intake Total 2755 1500 500 Output Total 2024 2200 300 Balance 730 -700 200 See PA's note for additional info after dsg change. Wound clear, dsgs c/d/i. No pain with AROM and passive stretch LLE. No calf TTP, neg Kinza's. DNVI BLEs. ICD10 Worksheet Patient Problems: Problems Problem Status Diagnosed Intractable pain Acute Tibial plateau fracture, left Acute
[2016-08-17] MEDS: HYDROmorphONE/DILAUDID 1 MG/ML SYR IVP PRN ×3 (12:46→19:38)
[2016-08-17] MEDS: DIAZEPAM 5 MG TAB PO PRN ×2 (17:48→23:22)
[2016-08-17 20:02] VITALS: RESP 16
[2016-08-18] MEDS: HYDROmorphONE/DILAUDID 2 MG TAB PO PRN ×3 (01:53→13:46)
[2016-08-18] MEDS: CYCLOBENZAPRINE 10 MG TAB PO PRN ×2 (04:58→10:34)
[2016-08-18] MEDS: oxyCODONE IR 5 MG TAB PO PRN ×3 (04:58→14:56)
[2016-08-18] MEDS: ACETAMINOPHEN 325 MG TAB PO SCH ×2 (04:59→10:33)
[2016-08-18] MEDS: DIAZEPAM 5 MG TAB PO PRN ×2 (08:32→13:46)
[2016-08-18] MEDS: FAMOTIDINE 20 MG TAB PO SCH (08:32)
[2016-08-18] MEDS: RIVAROXABAN 10 MG TAB PO SCH (08:32)
--- NOTE | 2016-08-18 11:41 | SOAPPROG ---
ARIN Progress Note Assessment/Plan: Assessment/Plan: Left tibial plateau fracture s/p ORIF L tibial plateau fracture, MCL repair, ACL repair, and lateral meniscus repair and partial meniscectomy POD#3 - NWB LLE - Continue ice and elevation - Continue pain management as tolerated w/ PO dilaudid 2mg and Percocet 7.5/325 - Cont PT/OT - Continue SCDs and TEDs for mechanical DVT prophylaxis - Continue Xarelto 10mg daily for DVT chemoprophylaxis - Continue CPM - D/c to home today Upon discharge, pt will cont Xarelto as ordered - 3 wks total post-op. Cont TEDs /SCDs, ICS, PT/OT. Strict NWB and brace on at all times (locked at 0 deg's) when up and ambulating. May remove brace for protected therapy and CPM 0-30 deg 's, advance by 5-10 deg's daily as tolerated to goal of 0-90 degs flexion. Pt is also encouraged to use ice and elevation as tolerated to relieve swelling, and PO percocet with hydropmorphone BTP dose for relief of significant pain. D/ c home today with family. F/u with Dr. Ortega in clinic 10-14 days post-op, this appointment has been previously scheduled. 08/18/16 11:37 08/18/16 11:45 Subjective: Pt seen up in bed. He states his pain is being well-controlled, with no worsening and no improvement overall in the past three day. At this point, the pt states "I have accepted that the pain is not going to get significantly better while in the hospital, and it is manageable, so I would rather spend my time at home where I am comfortable". He also states he worked OOB activities w / PT/OT yesterday. He denies any current fever, chills, cp, SOB, increased WOB , abd pain, N/V, numbness, tingling, as well as bilateral calf pain. He also states he has had some trouble sleeping at night d/t muscle spasms, but notes his Flexiril has improved this significantly. He has no additional concerns or complaints at this time Objective: Vital Signs Temp Pulse Resp BP Pulse Ox 36.9 C 91 16 132/85 H 95 08/18/16 08:00 08/18/16 08:00 08/18/16 08:00 08/18/16 08:00 08/18/16 08:00 08/17/16 08/18/16 08/19/16 05:59 05:59 05:59 Intake Total 1500 500 Output Total 2200 800 Balance -700 -300 Exam of LLE reveals intact CPM, hinged knee brace and compressive dressings, dry , intact marko w/ no significant erythema, swelling, discharge, calor or induration noted. No significant increase in pain reported with AROM/PROM. Post calves are NTTP, no palpable vascular cords, negative Kinza's bilat. DNVI BLE. ICD10 Worksheet Patient Problems: Problems Problem Status Diagnosed Intractable pain Acute Tibial plateau fracture, left Acute
[2016-08-18 12:13] VITALS: BP 144/87; PULSE 104; TEMP 98.7; O2SAT 96
--- NOTE | 2016-08-18 13:49 | GDS ---
[f rep st] DISCHARGE SUMMARY PREOPERATIVE DIAGNOSIS: 1. Closed left tibial plateau fracture involving both condyles. 2. Left knee lateral meniscus tear and meniscocapsular rupture. 3. Left knee distal medial collateral ligament avulsion. 4. Left knee anterior cruciate ligament bony avulsion and tibial eminence fracture. POSTOPERATIVE DIAGNOSIS: 1. Closed left tibial plateau fracture involving both condyles. 2. Left knee lateral meniscus tear and meniscocapsular rupture. 3. Left knee distal medial collateral ligament avulsion. 4. Left knee anterior cruciate ligament bony avulsion and tibial eminence fracture. PROCEDURES PERFORMED: 1. Open reduction, internal fixation of left tibial plateau bicondylar fracture. 2. Open left medial collateral ligament repair. 3. Open left knee lateral meniscus repair and partial meniscectomy. 4. Left knee arthroscopic-assisted tibial eminence fracture reduction and distal anterior cruciate ligament repair. 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 Radiographs showed a severely displaced tibial plateau fracture which required admission to [facility] and subsequent observation due to significant swelling and pain control. Subsequent imaging revealed a markedly comminuted and displaced intra-articular fracture of the proximal tibia with extension into the intercondylar notch, meniscocapsular detachment of the lateral meniscus with replacement of meniscal tissue, full-thickness avulsion of the distal MCL, severe sprain of the fibular-collateral ligament, and severe sprain of the ACL. HOSPITAL COURSE: The patient was admitted and placed on IV Ancef for antibiotic prophylaxis and taken to the OR on 08/15/2016, where he underwent an open reduction, internal fixation of the left tibial plateau bicondylar fracture , medial collateral ligament repair, lateral meniscus repair, and partial meniscectomy, and arthroscopically assisted tibial eminence fracture reduction, and distal anterior cruciate ligament repair, performed by Dr. Ortega. There were no intraoperative complications. Postoperative treatment for VTE prophylaxis includes mechanical prophylaxis with SCDs and COLEMAN hose placement, as well as Xarelto for VTE chemoprophylaxis. He was consulted on by Physical and Occupational Therapy. His incision appears to be healing well at the time of discharge, and his hospital stay was otherwise uneventful. DISCHARGE INSTRUCTIONS: 1. The patient will remain nonweightbearing on the left lower extremity, with the use of crutches or a walker for ambulation at all times. 2. The patient is to remain in his hinged knee brace locked at 0 degrees at all time, except for CPM and projective physical therapy. He is encouraged to use rest, ice, compression and elevation as needed for pain and swelling. 3. The patient is instructed to keep his incision sites clean and dry, and to cover for showers. 4. The patient is instructed to continue taking his Xarelto 10 mg daily for 21 days, followed by aspirin 325 mg once daily for 14 days for VTE chemoprophylaxis. 5. The patient will continue his continuous passive motion use for 4 weeks, beginning at 0 to 35 degrees of flexion as tolerated, and increasing 5 to 10 degrees daily until range of motion has reached 0 to 90 degrees of flexion. 6. The patient will follow up with Dr. Ortega 10 to 14 day postoperatively, this appointment has been previously scheduled at the patient preoperative appointments. He is also encouraged to follow up sooner with any additional concerns or complaints. 7. The patient is encouraged to be vigilant for signs of infection, including fevers, chills, abdominal pain, nausea, vomiting, increased redness, warmth, and /or drainage from the incision site. He is also encouraged to continue to monitor for signs of DVT, including but not limited to posterior calf pain, increased redness, temperature change, increased swelling, pain, back pain, chest pain, or shortness of breath. He is encouraged contact the office immediately should any of these symptoms occur. DISCHARGE MEDICATIONS: 1. Dilaudid 2 mg p.o. q.4h. p.r.n. severe pain. 2. Percocet 7.5/325 mg 1 tablet p.r.n. q.4h. for moderate pain. 3. Xarelto 10 mg p.o. daily x21 days. 4. Cyclobenzaprine 10 mg q.8h. p.r.n. muscle spasm. The patient is also to resume any preoperative medications at their prescribed dosages as previously indicated at his preoperative visit. /[id number]/MODL MTDD
== END 2016-08-18 15:15 | disposition home or self-care (01) ==
LOC: F3N 10:54 → INTOOBSV 10:54 → F3N 20:37
PROVIDERS: ADMIT Orthopaedic Surgery; ATTEND Orthopaedic Surgery
PROC: 0QSH04Z Reposition Left Tibia with Internal Fixation Device, Open Approach (ICD-10-PCS; principal; 2016-08-15 13:15)
PROC: 0MQP0ZZ Repair Left Knee Bursa and Ligament, Open Approach (ICD-10-PCS; principal; 2016-08-15 13:15)
DX: S82.142A Displaced bicondylar fracture of left tibia, initial encounter for closed fracture (principal); S83.282A Other tear of lateral meniscus, current injury, left knee, initial encounter; S83.412A Sprain of medial collateral ligament of left knee, initial encounter; S83.512A Sprain of anterior cruciate ligament of left knee, initial encounter; Y93.9 Activity, unspecified; Y92.838 Other recreation area as the place of occurrence of the external cause; F41.8 Other specified anxiety disorders
CPT/HCPCS: 27409; 27536; 73590; 76001; 97161; 97165; 97535; C1769; G0378; C1713; J0171; J0690; J1170; J2250; J2274; J2405; J2550; J2704; J3010; J3490

== ENCOUNTER 2016-11-01 12:09 | Observation (INO) | payer OTHER ==
[~2016-11-01 12:09] MED LIST changes: +BUPIVACAINE/EPI 0.5% 30 ML SDV ONE; -CHLORHEXIDINE GLUC HIBICLENS 118 ML BTL TP ONE; +LIDO/EPI 1% **Not for Epidural 20 ML MDV ONE; +LIDO/EPI 1% **for epidural** 30 ML SDV ONE
[2016-11-01] MEDS ORDERED: ONDANSETRON 4 MG/2 ML VIAL ONE ×2 (13:26→14:09)
[2016-11-01] MEDS ORDERED: LIDOCAINE 2% 5 ML SDV ONE ×2 (13:26→16:32)
[2016-11-01] MEDS ORDERED: KETOROLAC 30 MG/1 ML SDV ONE (13:27)
[2016-11-01] MEDS ORDERED: PROPOFOL 200 MG/20 ML VIAL ONE ×2 (13:27→14:10)
[2016-11-01] MEDS ORDERED: DEXAMETHASONE 4 MG/ML VIAL ONE ×3 (13:27→16:32)
[2016-11-01] MEDS ORDERED: fentaNYL 100 MCG/2 ML INJ ONE ×4 (13:27→16:14)
[2016-11-01] MEDS ORDERED: CEFAZOLIN 2 GM/DEXTROSE/100 ML BAG IV ONE (13:30)
[2016-11-01] MEDS ORDERED: MIDAZOLAM 2 MG/2 ML VIAL ONE (14:07)
[2016-11-01] MEDS ORDERED: LIDOCAINE 2% 100 MG/5 ML SYR ONE (14:09)
[2016-11-01] MEDS ORDERED: HYDROmorphONE/DILAUDID 2 MG/ML INJ ONE (15:08)
[2016-11-01] MEDS ORDERED: METOCLOPRAMIDE 10 MG/2 ML VIAL IVP PRN (15:53)
[2016-11-01] MEDS ORDERED: CYCLOBENZAPRINE 10 MG TAB PO PRN (15:53)
[2016-11-01] MEDS ORDERED: ONDANSETRON DISINTEGRATING 4 MG TAB PO PRN (15:53)
[2016-11-01] MEDS ORDERED: TEMAZEPAM 15 MG CAP PO PRN (15:53)
[2016-11-01] MEDS ORDERED: ONDANSETRON 4 MG/2 ML VIAL IVP PRN (15:53)
[2016-11-01] MEDS ORDERED: DIPHENOXYLATE/ATROPINE LOMOTIL 1 TAB PO PRN (15:53)
[2016-11-01] MEDS ORDERED: diphenhydrAMINE 25 MG CAP PO PRN (15:53)
[2016-11-01] MEDS ORDERED: PROMETHAZINE HCL 25 MG SUPPR PR PRN (15:53)
[2016-11-01] MEDS ORDERED: LR 1,000 ML IV SCH (16:00)
[2016-11-01] MEDS ORDERED: BISACODYL 10 MG SUPP PR PRN (16:02)
[2016-11-01] MEDS ORDERED: LACTULOSE 20 GM/30 ML UDCUP PO PRN (16:02)
[2016-11-01] MEDS ORDERED: MAGNESIUM HYDROXIDE 30 ML UDCUP PO PRN (16:02)
[2016-11-01] MEDS ORDERED: POLYETHYLENE GLYCOL 3350 17 GM PKT PO PRN (16:02)
--- NOTE | 2016-11-01 16:08 | POSTOPPROG ---
Post Op Note Date of Operation: 11/01/16 Surgeon: Dorian Ortega [employer] Business Analyst: Humera Alfaro PA-C Anesthesiologist: Jeff Anesthesia: GET(General Endotracheal) Pre-op Diagnosis: Left knee arthrofibrosis Post-op Diagnosis: Left knee arthrofibrosis Procedure: Left knee arthroscopy, lysis of adhesions, manipulation under anesthesia Inf/Abcess present in the surg proc area at time of surgery?: No Depth: Deep Incisional (Fascial) EBL: Minimal
[2016-11-01] MEDS ORDERED: HYDROmorphONE/DILAUDID 1 MG/ML SYR ONE ×2 (16:14→16:53)
[2016-11-01] MEDS ORDERED: ROPIVACAINE HCL 150 MG/30 ML INJ ONE (16:32)
[2016-11-01] MEDS: OXYCODONE/APAP 5/325 TAB PO PRN ×2 (18:57→23:55)
--- NOTE | 2016-11-01 20:03 | GOP ---
[f rep st] OPERATIVE REPORT DATE OF OPERATION: 11/01/2016 SURGEON: Dorian Ortega MD LOAN INSPECTOR: Humera Alfaro PA-C, resident. ANESTHESIA: General. ANESTHESIOLOGIST: Mark Aguilar MD. PREOPERATIVE DIAGNOSIS: 1. Left knee posttraumatic arthrofibrosis. 2. Left knee synovitis. 3. Left knee lateral compartment chondral defects. POSTOPERATIVE DIAGNOSIS: 1. Left knee posttraumatic arthrofibrosis. 2. Left knee synovitis. 3. 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 PROCEDURE PERFORMED: 1. Left knee arthroscopic extensive lysis of adhesions and manipulation under anesthesia. 2. Left knee arthroscopic lateral release. 3. Left knee arthroscopic chondroplasty of trochlear and lateral tibial plateau chondral defect. 4. Left knee tricompartmental synovectomy and debridement. FINDINGS: Pre-procedure ROM 17-60 degrees. Post-procedure ROM ~0-130 degrees. Intra-articular findings were consistent with severe arthrofibrosis and extensive adhesions. There was severe synovitis throughout all compartments of the knee. There was trochlear chondromalacia and a more significant area of lateral tibial plateau chondral defect. The overall surface of left lateral tibial plateau was irregular. There was a diminutive lateral meniscus present and/or perceivable. The more lateral margin of the tibial plateau, i.e., the lateral 2/3 of the plateau was in relatively good condition, and the lateral femoral condyle appeared relatively normal with only minor chondromalacia. Medial compartment was with normal meniscus as well as chondral surfaces. ACL and PCL were intact and visible after extensive debridement, synovectomy and lysis of adhesions. Suprapatellar pouch was essentially obliterated with severe scar throughout including gutters and pouch. The patient had less than 1 -quadrant glide in all directions on patellar exam prior to procedure, and then after procedure, the patient had 2-quadrant glide of patella in all directions. SPECIMENS: None. ESTIMATED BLOOD LOSS: Minimal. INDICATIONS: This is a 21-year-old active male who suffered a severe left knee injury while skiing. He underwent ORIF left tibial plateau, left MCL repair, open left knee partial lateral meniscectomy and lateral meniscus repair, partial repair of lateral patellar tendon as well as scope-assisted distal anterior cruciate ligament repair with tibial eminence reduction on 08/15/2016. The patient postoperatively had severe pain limiting his PT. Unfortunately, the patient developed severe contracture. Due to healing fracture, we were unable to perform any kind of manipulation or other significant work on the knee until about this time. After understanding the risks, benefits, alternatives, and after x-ray showed appropriate healing, we elected to proceed with the above-listed surgery. The patient provided a signed and witnessed informed consent which was placed in his chart. Please see History and Physical for additional information given his complex past history. DESCRIPTION OF PROCEDURE: The patient was identified in the preop holding area. His left knee was signed and designated as the operative site. The patient was confirmed to be in right lower extremity COLEMAN hose and SCDs. He was treated with 2 g IV prophylactic cefazolin per protocol, and taken back to the operating room, placed supine on the OR table where general anesthesia was obtained. Notably, Anesthesia did note through his surgery that the patient did require abundant narcotic and/or anesthetic in order to keep him stable medically and/or with his anesthesia. Right lower extremity was placed in a well-padded leg lee on the OR table. Left lower extremity was wrapped proximally with cast padding, and a nonsterile tourniquet and prepped and draped in the usual manner. Goniometer was used for both pre and postprocedural ROM measurement. Standard anterolateral and anteromedial scope portals were established with a # 11 blade. Complete diagnostic arthroscopy was performed with findings listed above. Initial focus was on the extensive adhesions throughout the anterior interval as there was very limited ability to move the scope around the knee and /or visualize any tolowa dee-ni' structures of the knee. Working meticulously throughout the anterior interval initially, an anterior interval release was performed. The very tight and dense scar tissue in the anterior interval was divided, i.e., the area of the anterior capsule anterior to the lateral compartment, medial compartment, and intercondylar notch. Great care was taken to avoid any damage to the inner meniscal ligament or ACL distal footprint. Dissection was performed working through both the lateral and medial portals, using the ArthroCare wand, and the abundant scar was divided. The anterior interval was recreated anterior to the tibial plateau and posterior to the patellar tendon. Once this appropriate lysis of adhesions was completed, the patient's knee motion was already improved. Next, working in the notch, complete synovectomy and debridement was performed. There were multiple adhesions encapsulating the ACL, PCL, and spanning different angles of the notch. These were divided with a vascular resection tool as well as a suction punch, and then as well with the full-radius shaver and ArthroCare wand. With the knee in full maximal extension, the patellofemoral joint was entered. Additional scar around the inferior portion of the patella was debrided back to a more standard appearing infrapatellar fat pad. The ArthroCare wand was then used through both the medial and lateral portals in order to perform a complete lysis of adhesions within the dense scar of the suprapatellar pouch. The pouch was reestablished by dividing through all the scar and debriding with the shaver. Once an appropriate amount of pouch was achieved, the gutters were addressed. Both gutters were divided with all adhesions divided using the ArthroCare wand. A lateral release was performed with the ArthroCare wand, dividing through the lateral capsular tissues in order to further improve overall patellar excursion. An additional medial release was performed as well in order to divide the medial capsule, and further improve the patient's overall patellar excursion. Once this was performed and without any manipulation, the patient's knee now flexed to approximately 90 degrees off the side of the bed without difficulty, and extension was achieved out to about approximately 7 or 8 degrees. Once this work was completed, the knee was swept throughout, and due to the significant contracture, it was very difficult to get into the lateral compartment. The scope equipment was removed from the knee. A manipulation under anesthesia was performed achieving flexion to approximately 128-130 degrees and extension out to approximately 3 degrees. With very cam pressure on the knee, and pillows behind the heel, I was able to achieve 0 degrees, again using a goniometer. Once this was completed, the knee was then able to be flexed into a [id number] position. The scope was then used to re-enter the knee laterally. The lateral compartment was entered. Additional debridement of adhesions was then performed. The articular cartilage more centrally was of very poor quality and consistent with scar. More laterally, the cartilage was of better overall quality. Any of the unstable segments were resected back to a stable base, using standard chondroplasty technique. Once this was completed , the lateral compartment was exited, and the knee was brought back to full extension. The trochlear chondroplasty was performed using the full-radius shaver, using very careful technique to only resect the unstable chondral flap segments. Please note, that the ArthroCare wand was used throughout all compartments in order to perform meticulous ablation of synovitis and synovectomy as well as meticulous hemostasis. The knee was again swept through all compartments with drop in pump pressure to assure no obvious bleeding. All excess saline was evacuated from the knee. The knee was again taken through range of motion to confirm no change in the overall range of motion, i.e., approximately 0-130. Therefore, the equipment was removed, and sutures were used to close the portals with 3-0 nylon. Sterile postoperative surgical dressings were applied. A COLEMAN hose was applied. The knee was then placed locked in full extension at 0 degrees with the hinged knee brace. The Anesthesia Service took over to wake the patient up. TOURNIQUET TIME: None. DRAINS: None. IMPLANTS: None. COMPLICATIONS: None. DISPOSITION: The patient was extubated and transferred to the PACU in stable condition. The plan is to have the patient admitted overnight for pain control and aggressive physical therapy. The Anesthesia Service will evaluate the patient once he is more awake and provide regional anesthesia in order to facilitate aggressive ROM and stretching with therapy. Will follow the patient closely and see him again in the morning for formal rounds. /[id number]/MODL MTDD
[2016-11-01] MEDS: SENNOSIDES/DOCUSATE SODIUM TAB PO SCH (21:47)
[2016-11-01] MEDS: FAMOTIDINE 20 MG TAB PO SCH (21:48)
[2016-11-01] MEDS: ceFAZolin 2 GM/DEXTROSE 100 ML IV SCH (21:56)
[2016-11-02] MEDS: ceFAZolin 2 GM/DEXTROSE 100 ML IV SCH (04:59)
[2016-11-02] MEDS: OXYCODONE/APAP 5/325 TAB PO PRN ×2 (04:59→15:36)
[2016-11-02 05:05] LABS: HEMATOCRIT 41.3 % (40.0-51.0)
--- NOTE | 2016-11-02 06:31 | SOAPPROG ---
SOAP Progress Note Assessment/Plan: Assessment/Plan: s/p Left knee arthroscopy, lysis of adhesions, manipulation under anesthesia -Cont PT/OT, ok to begin aggressive ROM this am and pm today, needs two visits before discharge. -Remain TDWB on LLE, brace locked in extension -Cont current PO pain regimen, pt has Percocet prescription from preop -Cont SCDs and TEDs for VTE mechanical prophylaxis -Cont ASA for VTE chemoprophylaxis, will continue for 14 days postoperatively -Ok to d/c today pending PT/OT approval after 2 visits, no significant drainage from surgical site, and completion of post op antibiotic prophylaxis 11/02/16 06:30 11/02/16 08:34 Subjective: Pt seen at bedside. No complaints of significant pain this am. He is tolerating his medications and diet well. He denies any new onset [place], dizziness , sob, cp, abd pain, n/v/d/c, bilateral calf pain or n/t. He states he has been up bedside, TDWB, and has voided today with no issues. He notes he has PT scheduled for later today, and that he is anxious to d/c. He has no additional concerns or complaints at this time. Objective: Vital Signs Temp Pulse Resp BP Pulse Ox 36.6 C 72 16 130/62 H 97 11/02/16 04:00 11/02/16 04:00 11/02/16 04:00 11/02/16 04:00 11/02/16 04:00 Laboratory Results 11/02/16 04:57 11/01/16 11/02/16 11/03/16 05:59 05:59 05:59 Intake Total 3560 Output Total 1870 Balance 1690 Pt seen at bedside, awoken for exam. A&Ox3, appropriate mood and affect, pleasant and cooperative with today's exam. Exam of LLE reveals intact hinged knee brace, locked, ice unit and SCDs and TEDs in place. Dressings are dry, intact, no surgical site signs of erythema, significant discharge, calor or induration. Intact nylon sutures. Post calves are NTTP, no palpable vascular cords, negative Kinza's. DNVI BLE. ICD10 Worksheet Patient Problems: Problems Problem Status Onset Intractable pain Acute Tibial plateau fracture, left Acute
[2016-11-02] MEDS ORDERED: HYDROmorphONE/DILAUDID 2 MG TAB PO PRN (06:46)
[2016-11-02 08:08] VITALS: RESP 18
[2016-11-02] MEDS ORDERED: ASPIRIN 325 MG TAB PO SCH (09:00)
[2016-11-02] MEDS: SENNOSIDES/DOCUSATE SODIUM TAB PO SCH (10:10)
[2016-11-02] MEDS: FAMOTIDINE 20 MG TAB PO SCH (10:10)
[2016-11-02 12:16] VITALS: BP 123/69; PULSE 80; TEMP 97.8; O2SAT 69
--- NOTE | 2016-11-12 14:43 | GDS ---
[f rep st] DISCHARGE SUMMARY HISTORY OF PRESENT ILLNESS: The patient is a 21-year-old male who presented to [facility] for a left knee arthroscopy for lysis of adhesions and manipulation under anesthesia for left k nee post traumatic arthrofibrosis and left knee synovitis. HOSPITAL COURSE: Patient underwent this procedure without any complications and was started on Ance f prior to surgery. The antibiotic was continued for another 24 hours after surgery. Patient was a lso evaluated by Physical Therapy the following day. Patient was on aspirin 325 mg b.i.d. for VTE c hemo prophylaxis as well as TEDs and SCDs for mechanical prophylaxis. Patient was touchdown weightb ear of the left lower extremity. He was discharged on Flexeril, Dilaudid, and Percocet for postoper ative pain management and muscle spasms. Patient's pain was well controlled in the hospital, and he was tolerating p.o. meds and his diet well. Patient was instructed to follow up in the office for his already scheduled postop appointment upon discharge. Hospital course was otherwise uneventful. /[id number]/MODL
== END 2016-11-02 16:04 | disposition home or self-care (01) ==
LOC: FSGY 12:09 → F3N 15:53
PROVIDERS: ADMIT Orthopaedic Surgery; ATTEND Orthopaedic Surgery
PROC: 0SBD4ZZ Excision of Left Knee Joint, Percutaneous Endoscopic Approach (ICD-10-PCS; principal; 2016-11-01 14:00)
DX: M24.662 Ankylosis, left knee (principal); M65.862 Other synovitis and tenosynovitis, left lower leg; M22.8X2 Other disorders of patella, left knee; M22.42 Chondromalacia patellae, left knee
CPT/HCPCS: 29876; 29881; 73560; 97110; 97116; 97161; 97165; G0378; J0171; J0690; J1100; J1170; J1885; J2001; J2250; J2405; J2704; J2795; J3010

== ENCOUNTER 2017-09-21 19:10 | Emergency (ER) | payer OTHER ==
[2017-09-21 19:26] VITALS: O2SAT 96
[2017-09-21] MEDS ORDERED: ONDANSETRON DISINTEGRATING 4 MG TAB PO ONE (19:47)
[2017-09-21 19:48] LABS: PLATELET COUNT 309 10^3/uL (150-400)
[2017-09-21] MEDS ORDERED: PANTOPRAZOLE SODIUM 40 MG TAB PO ONE (20:41)
--- NOTE | 2017-09-21 20:45 | EDPHY ---
H & P Stated Complaint: Coughing blood 3 days ago, concerned. Time Seen by Provider: 09/21/17 19:18 HPI/ROS: This patient reports the nausea and vomiting over the past 3 days with episodes of hematemesis. He also had an episode of diarrhea tonight for the 1st time. He reports that the blood is bright red on the 1st occasion and then slightly darker in color of the subsequent 2 episodes. He vomited once tonight but he admits that he gag himself to vomit. Prior episodes of nausea and vomiting were spontaneous. He reports however anorexia today and nausea when he attempts to eat. He tolerated a small part of a sandwich today. He reports intermittent upper belly cramps 4 to 5/10 intensity lasting 5-10 minutes intermittently for more than a month. He drove himself here by private vehicle for further evaluation of his symptoms. ROS: No fevers or chills. No fatigue. HEENT: No URI symptoms. Pulmonary: Rare dry cough. No shortness of breath. No pleuritic pain. Cardiovascular: No chest pain. No significant lightheadedness. GI: No lower belly pain. No abdominal distension. No blood in his stool. He describes light brown loose watery stool tonight. : No dysuria or testicular pain. No flank pain. Integumentary: No pallor or rash. Neuro: No numbness tingling or other complaints. No headache. Complete review of symptoms is otherwise negative. Source: Patient Exam Limitations: No limitations - Personal History Current Tetanus/Diphtheria Vaccine: Yes Current Tetanus Diphtheria and Acellular Pertussis (TDAP): Yes Tetanus Vaccine Date: 2013 - Medical/Surgical History Hx Asthma: No Hx Chronic Respiratory Disease: No Hx Diabetes: No Hx Cardiac Disease: No Hx Renal Disease: No Hx Cirrhosis: No Hx Alcoholism: No Hx HIV/AIDS: No Hx Splenectomy or Spleen Trauma: No Other PMH: anxiety depression, tib/fib fracture. 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 - Physical Exam Exam: General Appearance: Alert, no distress. Eyes: Pupils equal and round no pallor or injection. ENT, Mouth: Mucous membranes moist. Respiratory: There are no retractions, lungs are clear to auscultation. Cardiovascular: Regular rate and rhythm. No murmur gallop or rub Gastrointestinal: Normoactive, soft, minimal left lower quadrant tenderness with no guarding or rebound. : No testicular tenderness. No flank tenderness. Neurological: GCS 15 Skin: Warm and dry, no rashes. Musculoskeletal: Neck is supple nontender. Extremities are symmetrical, full range of motion. Psychiatric: Mood and affect normal DIFFERENTIAL DIAGNOSIS: After history and physical exam differential diagnosis was considered for viral gastroenteritis with Alecia-Schuler tear, gastritis, hepatitis, pancreatitis, doubt diverticulitis in this age group. Constitutional: Initial Vital Signs Temperature (C) 36.7 C 09/21/17 19:22 Heart Rate 82 09/21/17 19:22 Respiratory Rate 18 09/21/17 19:22 Blood Pressure 169/100 H 09/21/17 19:22 O2 Sat (%) 96 09/21/17 19:22 O2 Delivery Mode Room Air Allergies/Adverse Reactions: clindamycin Allergy (Verified 09/21/17 19:26) Hives Home Medications: Medication Instructions Recorded Ondansetron Odt [Zofran Odt] 4 - 8 mg PO Q4PRN PRN #4 tab 09/21/17 Pantoprazole Sodium [Protonix 40mg 40 mg PO DAILY #10 tab 09/21/17 (RX)] Medical Decision Making ED Course/Re-evaluation: Studies: CBC reveals mild leukocytosis with white count 12. Hematocrit normal. Platelets normal. Comprehensive metabolic panel and lipase are normal. Zofran sublingual for nausea with improvement. Protonix p.o. Discussion: Patient presents with vomiting and diarrhea is likely a viral gastroenteritis. However with daily alcohol intake he may also have gastritis. I counseled regarding this. Workup ruled out hepatitis or pancreatitis. I doubt also given lack of black tarry stools. Patient declined rectal exam here tonight. He likely had a Alecia-Schuler tear given his description of initially bright blood 1st emesis and then darker blood on subsequent emesis. I counseled regarding this. I recommended that he hold alcohol for the next week , taken acid magy-Protonix for the next 7-10 days Maalox in addition as needed Zofran for nausea vomiting if needed. He will follow up with Gastroenterology for any ongoing symptoms understands the need to return emergency department should he have any significant worsening despite the treatment plan. - Data Points Laboratory Results: Laboratory Results 09/21/17 19:45 09/21/17 19:45 Medications Given: Discontinued Medications Ondansetron HCl (Zofran Odt) 4 mg PO EDNOW ONE Stop: 09/21/17 19:48 Last Admin: 09/21/17 19:51 Dose: 4 mg Ondansetron HCl (Zofran Odt 4 Mg Prepack#2) 1 btl TAKEHOME EDNOW ONE Stop: 09/21/17 20:47 Last Admin: 09/21/17 20:53 Dose: 1 btl Pantoprazole Sodium (Protonix) 40 mg PO EDNOW ONE Stop: 09/21/17 20:42 Last Admin: 09/21/17 20:52 Dose: 40 mg Departure - Departure Disposition: Home, Routine, Self-Care Clinical Impression: Gastroenteritis, Alecia-Schuler tear Condition: Good Instructions: Ondansetron (By mouth), Gastroenteritis (ED), Alecia-Schuler Syndrome (ED) Additional Instructions: Diagnoses: 1. Viral gastroenteritis 2. Alecia-Schuler tear You likely have a viral illness causing vomiting and diarrhea. The blood is likely from a small tear in the mucosa of the esophagus from vomiting called "Alecia-Schuler tear." This is common will typically will without complications. You may also have a bit of gastritis-stomach inflammation. Plan: Hold on drinking any alcohol for the next week Zofran for nausea vomiting if needed Imodium [id number] for diarrhea if it continues or worsens. Protonix acid magy for the next 7-10 days. You received 1st dose of this tonight. Maalox in addition if needed for any upper belly discomfort. [place] diet-bananas, rice, applesauce, soup in similar and plenty of fluids until he feel improved Return for any significant worsening despite the treatment plan. Follow up with Gastroenterology specialist listed below for any ongoing symptoms despite the treatment plan. Referrals: Lewis Rabago MD [Primary Care Provider] - As per Instructions Leonel Chairez MD [Medical Doctor] - As per Instructions Stand Alone Forms: School Excuse Prescriptions: Ondansetron Odt [Zofran Odt] 4 - 8 mg PO Q4PRN PRN #4 tab PRN Reason: Vomiting Pantoprazole Sodium [Protonix 40mg (RX)] 40 mg PO DAILY #10 tab
[2017-09-21] MEDS ORDERED: ONDANSETRON 4MG PREPACK#2 BTL TAKEHOME ONE (20:46)
[2017-09-21 21:04] VITALS: BP 142/80; PULSE 81; RESP 16; TEMP 97.9
== END 2017-09-21 21:04 | disposition home or self-care (01) ==
LOC: CED 19:10
DX: K52.9 Noninfective gastroenteritis and colitis, unspecified (principal); K22.6 Gastro-esophageal laceration-hemorrhage syndrome
CPT/HCPCS: 80053-PO; 83690-PO; 85025-PO